=== PATIENT | male | born 1995 | race Two or more races ===

== ENCOUNTER 2017-07-08 14:38 | Emergency (ER) | payer MEDICAID ==
[2017-07-08] MEDS: IBUPROFEN 400 MG TABLET. PO (15:29)
[2017-07-09 07:32] LABS: NEGATIVE OBC STREP NEG; POSITIVE OBC STREP POS
== END 2017-07-08 16:26 | disposition home or self-care (01) ==
LOC: ER 14:38
DX: J11.1 Influenza due to unidentified influenza virus with other respiratory manifestations (principal)
CPT/HCPCS: 87070; 87880; 99284

== ENCOUNTER 2017-07-18 02:20 | Emergency (ER) | payer MEDICAID ==
[2017-07-18 02:50] LABS: ADD MAN DIFF? NO
[2017-07-18 02:52] LABS: BASO # 0.1 x10^3/uL (0.0-0.2); BASO % 1 % (0-3); EOS # 0.2 x10^3/uL (0.0-0.7); EOS % 1 % (0-3); HEMATOCRIT 43.9 % (39.0-53.0); HEMOGLOBIN 15.3 g/dL (13.0-17.5); LYMPH # 3.4 x10^3/uL (1.0-4.8); LYMPH % 26 % (24-48); MEAN CORPUSCULAR HEMOGLOBIN 30 pg (25-35); MEAN CORPUSCULAR HGB CONC 35 g/dL (31-37); MEAN CORPUSCULAR VOLUME 85 fL (79-100); MONO # 1.3 x10^3/uL (0.0-1.1); MONO % 10 % (0-9); NEUT # 8.3 x10^3uL (1.8-7.7); NEUT % 63 % (31-73); PLATELET COUNT 204 x10^3/uL (140-400); RED BLOOD COUNT 5.15 x10^6/uL (4.30-5.70); RED CELL DISTRIBUTION WIDTH 12.6 % (11.5-14.5); WHITE BLOOD COUNT 13.2 x10^3/uL (4.0-11.0)
[2017-07-18] MEDS: diphenhydrAMINE 50 MG/ML VIAL IVP (02:59)
[2017-07-18] MEDS: METOCLOPRAMIDE HCL 10 MG/2 ML VIAL. IV (02:59)
[2017-07-18] MEDS: IV NORMAL SALINE 1000ML BAG 1,000 ML IV (03:00)
[2017-07-18 03:02] LABS: ANION GAP 11 (6-14); BLOOD UREA NITROGEN 25 mg/dL (8-26); CALCIUM 9.4 mg/dL (8.5-10.1); CARBON DIOXIDE 26 mmol/L (21-32); CHLORIDE 100 mmol/L (98-107); GFR 94.3; GLUCOSE 101 mg/dL (70-99); POTASSIUM 3.4 mmol/L (3.5-5.1); SODIUM 137 mmol/L (136-145)
[2017-07-18] MEDS: ACETAMINOPHEN 500 MG TABLET PO (04:50)
[2017-07-18] MEDS: DEXAMETHASONE SOD PHOS 20 MG/5 ML VIAL. IV (05:14)
== END 2017-07-18 05:49 | disposition home or self-care (01) ==
LOC: ER 02:20
DX: J01.00 Acute maxillary sinusitis, unspecified (principal); J01.10 Acute frontal sinusitis, unspecified; G40.909 Epilepsy, unspecified, not intractable, without status epilepticus; F17.210 Nicotine dependence, cigarettes, uncomplicated
CPT/HCPCS: 36415; 70486; 80048; 85025; 96361; 96365; 96375; 99285-25; J0690; J1100; J1200; J2765; J7030